=== PATIENT | male | born 1935 | race Caucasian/White ===

== ENCOUNTER 2017-06-23 07:25 | Day surgery (SDC) | payer MEDICARE ==
[~2017-06-23] VITALS: Ht 177.8 cm; Wt 77.7 kg
[~2017-06-23 07:25] MED LIST: ATOR20TA65 PO; BETA1TAB20 PO; BRIM5DRO4 OU; DIGO250T84 PO; HYDR25TA PO; LATA2.5D2 OU; LOSA100T29 PO; SODIUM CHLORIDE 0.9% 1000ML 1,000 ML IV ONE; TAMS0.4C32 PO; TIMO5DRO35 OU; WARF1TAB46 PO; WARF4TAB41 PO
[2017-06-23 07:53] VITALS: BP 157/89
[2017-06-23 08:00] LABS: INR 1.05 (0.85-1.15)
[2017-06-23] MEDS ORDERED: PROPOFOL 10 MG/ML 20ML VIAL IV ONE (08:57)
[2017-06-23 09:15] VITALS: BP 83/36
== END 2017-06-23 09:54 ==
LOC: DAH 07:25 → ENDO 07:25
PROVIDERS: ATTEND Internal Medicine Gastroenterology
DX: Z08 Encounter for follow-up examination after completed treatment for malignant neoplasm (principal); Z85.048 Personal history of other malignant neoplasm of rectum, rectosigmoid junction, and anus; I10 Essential (primary) hypertension; E78.5 Hyperlipidemia, unspecified; I25.10 Atherosclerotic heart disease of native coronary artery without angina pectoris; N40.0 Benign prostatic hyperplasia without lower urinary tract symptoms; I48.91 Unspecified atrial fibrillation; Z79.899 Other long term (current) drug therapy; Z98.890 Other specified postprocedural states; Z98.0 Intestinal bypass and anastomosis status
CPT/HCPCS: 36415; 85610; 93005; A4606; G0105; J2704; J7030

== ENCOUNTER 2022-06-20 06:28 | Day surgery (SDC) | payer MEDICARE ==
[2022-06-17 14:15] VITALS: BP 156/79
[2022-06-17 14:16] LABS: BASOPHILS % (AUTO) 1.1 % (0.0-5.0); EOSINOPHILS % (AUTO) 3.1 % (0.0-8.0); HEMATOCRIT 39.4 % (42-54); LYMPHOCYTES % (AUTO) 21.4 % (21.0-51.0); MEAN CORPUSCULAR HGB CONC 32.5 g/dL (32.0-36.0); MEAN CORPUSCULAR VOLUME 92.3 fL (79-99); MONOCYTES % (AUTO) 8.9 % (3.0-13.0); NEUTROPHILS % (AUTO) 65.1 % (40.0-77.0); PLATELET COUNT (AUTO) 200 K/uL (130-400); RED BLOOD CELL COUNT(AUTO) 4.27 MIL/uL (4.50-6.20); RED CELL DISTRIBUTION WIDTH 14.3 % (11.0-15.5); WHITE BLOOD COUNT (AUTO) 4.6 K/uL (4.8-10.8)
[2022-06-17 14:32] LABS: INR 1.07 (0.85-1.15); PROTHROMBIN TIME 11.6 SEC (9.6-11.6)
[2022-06-17 14:33] LABS: PARTIAL THROMBOPLASTIN TIME 35.6 SEC (26.3-35.5)
[2022-06-17 14:34] LABS: ALBUMIN 4.1 g/dL (3.5-5.0); BILIRUBIN,DIRECT 0.4 mg/dL (0.0-0.3); CREATININE 1.1 mg/dL (0.5-1.5)
[~2022-06-20] VITALS: Ht 177.8 cm; Wt 64.4 kg
[2022-06-20] VITALS (18 sets, daily range): BP systolic 138–161; BP diastolic 71–113
[~2022-06-20 06:28] MED LIST changes: +APIX5TAB PO; -BETA1TAB20 PO; -BRIM5DRO4 OU; +BRIM5DRO5 OU; -DIGO250T84 PO; +LATA2.5D14 OU; -LATA2.5D2 OU; -LOSA100T29 PO; +LOSA100T58 PO; -SODIUM CHLORIDE 0.9% 1000ML 1,000 ML IV ONE; -TIMO5DRO35 OU; +TIMO5DRO47 OU; -WARF1TAB46 PO; -WARF4TAB41 PO
[2022-06-20] MEDS ORDERED: LACTATED RINGERS 1000ML 1,000 ML IV ONE (07:29)
[2022-06-20] MEDS ORDERED: CEFAZOLIN SODIUM 2 GM VIAL ONE (07:29)
[2022-06-20] MEDS ORDERED: ROCURONIUM 10MG/1ML SYR 10 MG/ML ML ONE (08:47)
[2022-06-20] MEDS ORDERED: GLYCOPYRROLATE 1 MG/5 ML SYRINGE ONE (08:47)
[2022-06-20] MEDS ORDERED: NEOSTIGMINE 5MG/5ML SYR IV ONE (08:47)
[2022-06-20] MEDS ORDERED: ONDANSETRON 4MG INJ ONE (08:47)
[2022-06-20] MEDS ORDERED: PROPOFOL 10 MG/ML 20ML VIAL IV ONE (08:47)
[2022-06-20] MEDS ORDERED: DEXAMETHASONE SOD PHOSPHATE 4 MG/ML 1ML VIAL ONE (08:47)
[2022-06-20] MEDS ORDERED: LIDOCAINE HCL MPF 1% 5ML VIAL ONE (08:47)
[2022-06-20] MEDS ORDERED: FENTANYL CITRATE PF 50 MCG/1 ML 2ML VIAL ONE (08:49)
[2022-06-20] MEDS ORDERED: BUPIVACAINE/PF 0.25% 30ML VIAL IJ ONE (08:50)
[2022-06-20] MEDS ORDERED: ROPIVACAINE 0.5% 5MG/ML 30ML IJ ONE (09:57)
[2022-06-20] MEDS ORDERED: HYDRALAZINE 20MG/ML VIAL ONE (10:38)
[2022-06-20] MEDS ORDERED: MEPERIDINE-PF 25 MG/ML SYG ONE (11:03)
[2022-06-20] MEDS ORDERED: TRAM50TA4 PO (11:45)
[2022-06-20] MEDS ORDERED: DOCU-116 PO (11:46)
[2022-06-20] MEDS ORDERED: METH-662 PO (11:47)
== END 2022-06-20 12:10 | disposition home or self-care (01) ==
LOC: DAH 06:28
PROVIDERS: ATTEND Surgery
DX: K40.90 Unilateral inguinal hernia, without obstruction or gangrene, not specified as recurrent (principal); Z20.822 Contact with and (suspected) exposure to COVID-19; D17.6 Benign lipomatous neoplasm of spermatic cord; I11.9 Hypertensive heart disease without heart failure; I45.10 Unspecified right bundle-branch block; E78.00 Pure hypercholesterolemia, unspecified; Z79.01 Long term (current) use of anticoagulants; Z79.899 Other long term (current) drug therapy; Z87.891 Personal history of nicotine dependence; Z90.49 Acquired absence of other specified parts of digestive tract; Z98.890 Other specified postprocedural states; Z85.038 Personal history of other malignant neoplasm of large intestine; Z82.49 Family history of ischemic heart disease and other diseases of the circulatory system; Z80.42 Family history of malignant neoplasm of prostate; Z80.0 Family history of malignant neoplasm of digestive organs
CPT/HCPCS: 80076; 80048; 85025; 85610; 85730; 87426; 36415; 93005; 49505; 64425; 76942; A6260; J1100; A4663; J7030; A4452; A4344; J7120; J3010; J3490 ×3; J2710; J0360; J2704; J2405; J2175; J2795; J0690; A4215; A4223; A4222; A4221